=== PATIENT | male | born 1975 | race Caucasian/White ===

== ENCOUNTER 2017-02-06 20:57 | Emergency (ER) | payer BC ==
[2017-02-06 22:10] VITALS: BP 130/91
--- NOTE | 2017-02-06 22:53 | ER ---
DATE SEEN: 02/06/2017 CHIEF COMPLAINT: Chest pain. HISTORY OF PRESENT ILLNESS: This is a 42-year-old male, previously healthy, complains of pain in the chest, happened episodically today in the middle of the chest, mostly it was the left as well. Seemed sharp and heavy at times. REVIEW OF SYSTEMS: Has palpitations, but denies fever, cough, or headache. Has mild anxiety as well. SOCIAL HISTORY: Does not smoke. PAST MEDICAL HISTORY: Hypertension, tachycardia. PHYSICAL EXAMINATION: VITAL SIGNS: Blood pressure is 143/90, temperature 97.8. EARS, NOSE, AND THROAT: Negative. NECK: Supple. CHEST: Clear. CARDIOVASCULAR: Normal. MENTAL STATUS: Alert, normal affect. LABS: CBC, CMP, D-dimer, troponin negative. EKG normal sinus rhythm. Chest x- ray negative. IMPRESSION: Atypical chest pain. PLAN: Reassurance. FOLLOWUP: In the office tomorrow, return with any worsening symptoms. /[id number] KAMARI/JESSICA
--- NOTE | 2017-02-07 10:31 | CR ---
INDICATION: Left-sided mid chest pain intermittently x1 week. CHEST: PA and lateral views of the chest were obtained 02/06/2017. No comparisons were available. The heart is normal in size and shape. There is suggestion of some minimal calcification at the arch of the aorta. Overlying snaps and EKG leads are noted. An active infiltrate or effusion was not identified. Bridging hyperostotic changes are noted in the upper middle through lower middle thoracic spine off vertebral bodies. There is evidence of exogenous obesity. IMPRESSION: 1. No definite acute process. 2. Possible minimal ASD aorta. 3. DJD spine. 4. Exogenous obesity. MTDD
== END 2017-02-06 22:05 | disposition home or self-care (01) ==
LOC: FB.ED 20:57
DX: R07.89 Other chest pain (principal); I10 Essential (primary) hypertension
CPT/HCPCS: 36415; 71020; 80048; 82550; 82553; 84484; 85025; 85379; 93005; 99284